=== PATIENT | female | born 1995 | race Caucasian/White ===

== ENCOUNTER → 2019-07-02 | Emergency (ER) | payer SELFPAY ==
[~2019-07-02] VITALS: Ht 162.6 cm; Wt 61.2 kg
[~2019-07-02] MED LIST: DAY TIME SOFTG1 EACH PO; ONDANSETRON ODT8 MG PO; POTASSIUM CHLO10 MEQ PO
--- OUTSIDE RECORDS SUMMARY | 2019-07-02 20:18 | XMS ---
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 Pipo has no Care Guidelines for this patient. Jami VISIT COUNT (12 MO.) 2 [facility] [facility] TOTAL 2 NOTE: Visits indicate total known visits. ED/C VISIT TRACKING (12 MO.) 07/02/2019 20:16 [facility] [place] TYPE: Emergency COMPLAINT: - VOMITING BLOOD 06/28/2019 09:21 [facility] [place] TYPE: Emergency COMPLAINT: - VOMITING DIAGNOSES: - Nausea with vomiting, unspecified - Acute gastritis without bleeding INPATIENT VISIT TRACKING (12 MO.) No inpatient visits to display in this time frame [email or web address]
== END ==
LOC: ED 20:15
DX: K29.70 Gastritis, unspecified, without bleeding (principal); E87.6 Hypokalemia; Z87.891 Personal history of nicotine dependence
CPT/HCPCS: 76705; 80048; 80053; 83690; 83735; 84703; 85025; 96361; 96365; 96366; 96375; 99284-25; J2405; J3480; J7030; J7040

== ENCOUNTER 2020-07-14 17:35 | Inpatient (IN) | payer MEDICAID ==
--- NOTE | ~2020-07-14 | OR ---
[facility] [address] [place], [place] [address] Draft DATE OF OPERATION: 07/15/2020 SURGEON: Swathi Renee DO PREOPERATIVE DIAGNOSES: 1. Failure to progress. 2. Non-reassuring heart tracing. 3. Persistent OP positioning. POSTOPERATIVE DIAGNOSES: 1. Failure to progress. 2. Non-reassuring heart tracing. 3. Persistent OP positioning. PROCEDURE: Primary low transverse delivery. KNOT CUTTER: Kaylin Suarez DO ANESTHESIA: Epidural. ESTIMATED BLOOD LOSS: 500 mL. COMPLICATIONS: None. FINDINGS: Delivery of viable female , 6 pounds 7 ounces with Apgars 8 and 9, born in the LOP position with nuchal loose x1. Significant caput noted. Normal uterus, tubes, and ovaries. Venous pH 7.34, pCO2 44.7, bicarb 23.7, base excess -1.8. INDICATIONS: Ms. Clifton is a pleasant 24-year-old G1, P0 female, who presented with spontaneous rupture of membranes. The patient labored without complication and progressed at abnormal rate to 9 cm dilation. Persistent OP position was noted and positional changes were employed, but baby was unable to rotate. Pitocin was attempted to be started. However, heart tracing became nonreassuring with variable late decelerations, and PATIENT NAME: BALJIT CLIFTON OPERATIVE REPORT DATE OF : [birth year] REPORT #: [id number] PHYSICIAN: SWATHI RENEE DO PCP: NO PRIMARY CARE PHYSICIAN REPORT IS CONFIDENTIAL AND NOT TO BE RELEASED WITHOUT AUTHORIZATION [facility] [address] [place], [place] [address] Draft a prolonged deceleration. Given nearly 4 hours at 9 cm and nonreassuring heart tracing, decision was made to proceed with urgent delivery via primary low transverse delivery. Risks, benefits, and alternatives were discussed in detail with the patient. The patient understands and wished to proceed with procedure. TECHNIQUE: The patient was taken to the operating room where a time-out was performed to confirm correct patient, correct procedure. Epidural had been previously established and this was bolused and was found to be adequate. The patient was prepped and draped in the supine position with a bump on the right hip. Rivera catheter had been previously inserted. Ancef 2 g were given preoperatively and no heparin was indicated based on her preemie score. Once epidural was noted to be adequate, a Pfannenstiel skin incision was made 2-3 cm above the pubic symphysis. Incision was carried down to the fascia where the fascia was nicked in the midline. The fascial incision was extended bilaterally using curved Rod scissors. The fascia was grasped with Leola's, elevated, and the underlying rectus muscle dissected bluntly and sharply. The rectus muscle was divided in the midline using blunt dissection and the peritoneum was grasped with hemostats, elevated, and entered sharply. Peritoneal incision was extended cephalad and caudad with sharp and blunt dissection. The lower uterine segment was identified and normal. The Gonzalo self-retractor was placed without difficulty and hysterotomy was performed using a surgical scalpel. Hysterotomy was extended bilaterally using blunt dissection. Clear fluid was noted. The surgeon's hand was placed in the uterine cavity. The head was easily elevated in the abdomen and delivered with the assistance of fundal pressure. Loose nuchal x1 was noted and LOP position was confirmed. The remainder of the delivered easily with the assistance of fundal pressure and the was vigorous and cried at delivery. Cord was doubly clamped and cut and the handed to the waiting pediatric team for further care. Cord blood was obtained for gases and for routine analysis. The placenta was expressed intact with a centrally inserted 3-vessel cord. The uterus was cleared of any remaining products of conception or clot. Pitocin was started per protocol and bleeding was scant. The hysterotomy was then repaired using 0 Vicryl in a running locked layer with a second imbricating layer of 0 Vicryl applied in a vertical manner. Excellent hemostasis and imbrication was noted. A small amount of serosal oozing was made hemostatic with Bovie electrocautery. The pelvis was irrigated and found to be hemostatic. The Gonzalo self-retractor was removed. Bilateral tubes and ovaries were identified and found to be normal. ACell sheet was applied to the lower uterine segment. Peritoneum was then reapproximated using 2-0 Vicryl in a running nonlocked manner. The rectus was examined and made hemostatic with judicious use of Bovie electrocautery. The rectus was then reapproximated using three interrupted sutures of 0 Vicryl. ACell powder was applied to the rectus sheath. Fascia was then reapproximated using 0 Vicryl in a running nonlocked manner. Subcu was irrigated and made hemostatic with Bovie electrocautery. Subcu was then reapproximated using 2-0 Vicryl in a running nonlocked manner. Skin was reapproximated using surgical PATIENT NAME: BALJIT CLIFTON OPERATIVE REPORT DATE OF : [birth year] REPORT #: [id number] PHYSICIAN: SWATHI RENEE DO PCP: NO PRIMARY CARE PHYSICIAN REPORT IS CONFIDENTIAL AND NOT TO BE RELEASED WITHOUT AUTHORIZATION [facility] [address] [place] [address] Draft val with excellent hemostasis and cosmesis. The uterus could aid for scant amount of blood and the patient was taken to the PACU in good and stable condition. Sponge, needle, and instrument count was correct x2 at the end of the procedure. Dr. Suarez was present and participated in all portions of the procedure. Swathi Renee DO JRickW/JACKIE /[id number] Copies: ~ PATIENT NAME: BALJIT CLIFTON OPERATIVE REPORT DATE OF : [birth year] REPORT #: [id number] PHYSICIAN: SWATHI RENEE DO PCP: NO PRIMARY CARE PHYSICIAN REPORT IS CONFIDENTIAL AND NOT TO BE RELEASED WITHOUT AUTHORIZATION
--- NOTE | 2020-07-14 22:09 | PR ---
[facility] [address] [facility] [place], [place] [address] Signed Progress Notes IP Datetime Report Generated by CPN: 07/14/2020 22:09 PROGRESS NOTES: [id number] Impression: Normal Progression of Labor; Reassuring Heart Rate Plan: Continue Present Management VITAL SIGNS: [id number] Vital Signs: Reviewed VS Notable Details: Elevated sytolic on admission. Will monitor EXAM: [id number] Dilatation: 2.5 Effacement: 100 Station: -2 Contractions: rare MEMBRANES: [id number] Amniotic Fluid Color: Clear Comments: Pt seen and examined. Doing well. Comfortable with epidural that was kindly placed by anesthesia. Cervical exam per RN reports complete effacement. Will continue expectant management. If unchanged at next exam will consider IUPC. All questions answered FETUS A: [id number] FHR Baseline: 130 Variability: Moderate 6-25bpm Accelerations: 15X15 Decelerations: None Presentation: Vertex Comments on Fetus A: No evidence of metabolic acidosis FETUS B: [id number] Signing Physician: Swathi Renee DO Copies: ~ *Electronically Signed* 07/14/20 5060 SWATHI RENEE DO PATIENT NAME: BALJIT CLIFTON PROGRESS NOTE DATE OF : [birth year] PHYSICIAN: SWATHI RENEE DO RPT #: [id number] REPORT IS CONFIDENTIAL AND NOT TO BE RELEASED WITHOUT AUTHORIZATION
--- NOTE | 2020-07-14 23:31 | PR ---
[facility] [address] [place], [place] [address] Signed Progress Notes IP Datetime Report Generated by CPN: 07/14/2020 23:31 PROGRESS NOTES: [id number] Impression: Normal Progression of Labor; Reassuring Heart Rate Procedures: Intrauterine Pressure Catheter; Sterile Vag Exam Plan: Continue Present Management VITAL SIGNS: [id number] Vital Signs: Reviewed VS Notable Details: Elevated sytolic on admission. Will monitor EXAM: [id number] Dilatation: 10.0 Effacement: 100 Station: -2 Contractions: rare MEMBRANES: [id number] Amniotic Fluid Color: Clear Comments: Pt seen and examined. Doing well comfortable w/ contractions. 4/ 100 / 0 w/ bloody show. IUPC inserted w/out difficulty after verbal consent. Continue expectant management. Discussed indications for augmentation. Reviewed anticipated course of labor. All questions answered. FETUS A: [id number] FHR Baseline: 130 Variability: Moderate 6-25bpm Accelerations: 15X15 Decelerations: None Presentation: Vertex Comments on Fetus A: No evidence of metabolic acidosis FETUS B: [id number] Signing Physician: Swathi Renee DO Copies: ~ *Electronically Signed* 07/14/20 1109 SWATHI RENEE DO PATIENT NAME: BALJIT CLIFTON PROGRESS NOTE DATE OF : [birth year] PHYSICIAN: SWATHI RENEE DO RPT #: [id number] REPORT IS CONFIDENTIAL AND NOT TO BE RELEASED WITHOUT AUTHORIZATION
--- NOTE | 2020-07-15 05:05 | PR ---
[facility] [address] [place], [place] [address] Signed Progress Notes IP Datetime Report Generated by CPN: 07/15/2020 05:05 PROGRESS NOTES: [id number] Impression: Normal Progression of Labor; Reassuring Heart Rate Procedures: Sterile Vag Exam Plan: Continue Present Management Informed Consent Obtain: Vaginal Delivery VITAL SIGNS: [id number] Vital Signs: Reviewed VS Notable Details: Elevated sytolic on admission. Will monitor EXAM: [id number] Dilatation: 9.0 Effacement: 100 Station: -2 Contractions: rare MEMBRANES: [id number] Amniotic Fluid Color: Clear Comments: Pt seen and examined. Doing well. Comfortable w/ contractions but starting to feel more pressure. On exam 9cm w/ some caput noted. Maternal temp 100.0. Continue expectant management. Reviewed plan w/ pt and partner who understand and agree. FETUS A: [id number] FHR Baseline: 130 Variability: Moderate 6-25bpm Accelerations: 15X15 Decelerations: None Presentation: Vertex Comments on Fetus A: No evidence of metabolic acidosis FETUS B: [id number] Signing Physician: Swathi Renee DO Copies: ~ *Electronically Signed* 07/15/20 0500 SWATHI RENEE DO PATIENT NAME: BALJIT CLIFTON PROGRESS NOTE DATE OF : [birth year] PHYSICIAN: SWATHI RENEE DO RPT #: [id number] REPORT IS CONFIDENTIAL AND NOT TO BE RELEASED WITHOUT AUTHORIZATION
--- NOTE | 2020-07-15 07:36 | PR ---
[facility] [address] [place], [place] [address] Signed Progress Notes IP Datetime Report Generated by SUE: 07/15/2020 07:36 PROGRESS NOTES: [id number] Impression: Arrest of Dilatation/Descent; Non-reassuring Heart Rate Procedures: Sterile Vag Exam Plan: Deliver- Section Informed Consent Obtain: Section Delivery; Risks, Benefits and Alternatives Discussed VITAL SIGNS: [id number] Vital Signs: Reviewed VS Notable Details: Elevated sytolic on admission. Will monitor EXAM: [id number] Dilatation: 9.0 Effacement: 100 Station: -2 Contractions: rare MEMBRANES: [id number] Amniotic Fluid Color: Clear Comments: Pt at 9cm for nearly 3 hrs. Attempted to start pitocin but fetus did not tolerate well. Now variable, late, and a prolonged deceleration noted. Intrauterine rescussitation not effective. Recommend urgent for failure to progress and non-reassuring FHT. Moderate variability noted. Reviewed risk/benefits in detail. Consents signed. OR crew called and en route. All questions answered. Ancef 2 gr. Pt given Terb and moved to OR FETUS A: [id number] FHR Baseline: 130 Variability: Moderate 6-25bpm Accelerations: 15X15 Decelerations: None Presentation: Vertex Comments on Fetus A: No evidence of metabolic acidosis FETUS B: [id number] Signing Physician: Swathi Renee DO Copies: ~ *Electronically Signed* 07/15/20 0736 SWATHI RENEE DO PATIENT NAME: BALJIT CLIFTON PROGRESS NOTE DATE OF : [birth year] PHYSICIAN: SWATHI RENEE DO RPT #: [id number] REPORT IS CONFIDENTIAL AND NOT TO BE RELEASED WITHOUT AUTHORIZATION
--- NOTE | 2020-07-15 07:39 | PR ---
[facility] [address] [facility] [place], [place] [address] Signed Progress Notes IP Datetime Report Generated by CPN: 07/15/2020 07:39 PROGRESS NOTES: [id number] Impression: Arrest of Dilatation/Descent; Non-reassuring Heart Rate Procedures: Sterile Vag Exam Plan: Deliver- Section Informed Consent Obtain: Section Delivery; Risks, Benefits and Alternatives Discussed VITAL SIGNS: [id number] Vital Signs: Reviewed VS Notable Details: Elevated sytolic on admission. Will monitor EXAM: [id number] Dilatation: 9.0 Effacement: 100 Station: -2 Contractions: rare MEMBRANES: [id number] Amniotic Fluid Color: Clear Comments: Addendum to last note. Suspected perisistant occiput posterior position noted. FETUS A: [id number] FHR Baseline: 130 Variability: Moderate 6-25bpm Accelerations: 15X15 Decelerations: None Presentation: Vertex Comments on Fetus A: No evidence of metabolic acidosis FETUS B: [id number] Signing Physician: Swathi Renee DO Copies: ~ *Electronically Signed* 07/15/20 0739 SWATHI RENEE DO PATIENT NAME: BALJIT CLIFTON RECORD #: [id number] PROGRESS NOTE DATE OF : [birth year] PHYSICIAN: SWATIH RENEE DO RPT #: [id number] REPORT IS CONFIDENTIAL AND NOT TO BE RELEASED WITHOUT AUTHORIZATION
--- NOTE | 2020-07-15 08:50 | NUR ---
07/15/20 0850 Stephanie Cantrell 0868 PATIENT ARRIVES TO [facility] 101 AWAKE OFF/ON, BUT VERY DROWSY. PATIENT DENIES PAIN OR NAUSEA. RESP EVEN AND UNLABORED, ROOM AIR SATS >93%. BABY WITH AT BEDSIDE.
--- NOTE | 2020-07-16 07:24 | PR ---
[facility] [address] [facility] [place], [place] [address] Signed PP Progress Notes Datetime Report Generated by CPN: 07/16/2020 07:24 SUBJECTIVE: [id number] Pain: Within Normal Limits Nausea/Vomiting: Denies Flatus: Yes Bowel Movement: No Vital Signs: [id number] Vital Signs: Reviewed Notable Details: Slight maternal tachycardia Cardiovascular: Normal Respiratory: Normal Abdomen/Uterus: Normal Lochia: Normal Vulva/Perineum: Not Done Breasts: Not Done CVA Tenderness: Normal Extremities: Normal Incision: Normal Progress: Normal Exam Comments: Fundus firm U-2 nontender. Incision clean dry and healing well. IMPRESSION/PLAN/PROCEDURES: [id number] Impression: Normal Progression Plan: Continue Present Management Progress Notes: Pt seen and examined. Doing well. Ambulating, voiding, and tolerating full diet. Pain and lochia minimal. well. Hgb 10.6. Reviewed labor, , and pp progress in detail. No questions. Anticipate d/c home tomorrow. Signing Physician: Swathi Renee DO Copies: ~ *Electronically Signed* 07/16/20 0724 SWATHI RENEE DO PATIENT NAME: NEMECHEK,BALJIT BRAYDON PROGRESS NOTE DATE OF : 93 PHYSICIAN: SWATHI RENEE DO RPT #: [id number] REPORT IS CONFIDENTIAL AND NOT TO BE RELEASED WITHOUT AUTHORIZATION
--- NOTE | 2020-07-17 07:52 | PR ---
[facility] [address] [place], [place] [address] Signed PP Progress Notes Datetime Report Generated by CPN: 07/17/2020 07:52 SUBJECTIVE: [id number] Pain: Within Normal Limits Nausea/Vomiting: Denies Flatus: Yes Bowel Movement: No Vital Signs: [id number] Vital Signs: Reviewed Notable Details: Slight maternal tachycardia Cardiovascular: Normal Respiratory: Normal Abdomen/Uterus: Normal Lochia: Normal Vulva/Perineum: Not Done Breasts: Normal CVA Tenderness: Normal Extremities: Normal Incision: Normal Progress: Normal Exam Comments: Fundus firm U-2 nontender. Incision healing well. IMPRESSION/PLAN/PROCEDURES: [id number] Impression: Normal Progression Plan: Remove [place]; Discharge Progress Notes: Pt seen and examined. Ambulating, voidign, tolerating full diet. Pain and lochia minimal. well. Incision healing well. D/c home. D/C instrutions reviewed in detail. Ruddy out prior to d/c Signing Physician: Swathi Renee DO Copies: ~ *Electronically Signed* 07/17/20 0752 SWATHI RENEE DO PATIENT NAME: BALJIT CLIFTON PROGRESS NOTE DATE OF : 93 PHYSICIAN: SWATHI RENEE DO RPT #: [id number] REPORT IS CONFIDENTIAL AND NOT TO BE RELEASED WITHOUT AUTHORIZATION
== END 2020-07-17 10:25 | disposition home or self-care (01) | DRG 787 ==
LOC: FBCO 17:35 → FBC 17:50 → FBCO 07-18 12:12
PROVIDERS: ADMIT Obstetrics & Gynecology; ATTEND Obstetrics & Gynecology
PROC: 10H07YZ Insertion of Other Device into Products of Conception, Via Natural or Artificial Opening (ICD-10-PCS; 2020-07-14)
PROC: 00HU33Z Insertion of Infusion Device into Spinal Canal, Percutaneous Approach (ICD-10-PCS; 2020-07-14)
PROC: 3E0R3BZ Introduction of Anesthetic Agent into Spinal Canal, Percutaneous Approach (ICD-10-PCS; 2020-07-14)
PROC: 10D00Z1 Extraction of Products of Conception, Low, Open Approach (ICD-10-PCS; principal; 2020-07-15 08:02)
DX: O64.0XX0 Obstructed labor due to incomplete rotation of fetal head, not applicable or unspecified (principal); O99.324 Drug use complicating childbirth; O62.1 Secondary uterine inertia; Z3A.39 39 weeks gestation of pregnancy; Z37.0 Single live birth; O76 Abnormality in fetal heart rate and rhythm complicating labor and delivery; O69.81X0 Labor and delivery complicated by cord around neck, without compression, not applicable or unspecified; F12.90 Cannabis use, unspecified, uncomplicated; Z87.891 Personal history of nicotine dependence; Z86.19 Personal history of other infectious and parasitic diseases
CPT/HCPCS: 01961; 36415; 82803; 85027; A9270; J0690; J1650; J1885; J2001; J2274; J2405; J2550; J2590; J2795; J3105; J7121